=== PATIENT | female | born 1975 | race Hispanic/Latino ===

== ENCOUNTER 2020-07-07 08:49 | Emergency (ER) | payer OTHER ==
--- NOTE | 2020-07-07 10:54 | EDPHYS ---
Physician Documentation [facility] Name: Deneen Banda Age: 44 yrs Sex: Female : 1975 Arrival Date: 07/07/2020 Time: 08:58 Bed 7 Private MD: ED Physician Pedrito Hood HPI: 07/07 09:35 This 44 yrs old Female presents to ER via Ambulatory with complaints of Sore cp Throat, Sinus Congestion. 09:35 Onset: The symptoms/episode began/occurred 3 day(s) ago. cp 09:35 Associated signs and symptoms: Pertinent positives: cough, Sore throat nasal and sinus cp congestion, Pertinent negatives diarrhea, fever, vomiting. Historical: - Allergies: 09:37 No Known Allergies; iw - Home Meds: 09:37 None [Active]; iw - PMHx: 09:37 None; iw - PSHx: 09:37 ; iw - Immunization history:: Adult Immunizations up to date. - Social history:: Smoking status: Patient denies any tobacco usage or history of. ROS: 09:40 Constitutional: Negative for chills, fever, poor PO intake. cp 09:40 Eyes: Negative for injury, pain, redness, and discharge. cp 09:40 ENT: Positive for sinus congestion, sinus pain, sore throat, Negative for drainage from ear(s), ear pain, difficulty swallowing, difficulty handling secretions. 09:40 Cardiovascular: Negative for chest pain. 09:40 Respiratory: Positive for cough, Negative for shortness of breath, wheezing. 09:40 Skin: Negative for rash. 09:40 Neuro: Negative for altered mental status, weakness. 09:40 All other systems are negative. Exam: 10:00 Constitutional: The patient appears in no acute distress, alert, awake, non-toxic, well cp developed, well nourished. 10:00 Head/face: Sinus tenderness, that is mild, is located over the right frontal sinus, cp left frontal sinus, right maxillary sinus and left maxillary sinus. 10:00 Eyes: Periorbital structures: appear normal, Conjunctiva: normal, no exudate, no injection, Lids and lashes: appear normal, bilaterally. 10:00 ENT: External ear(s): are unremarkable, Ear canal(s): are normal, clear, TM's: bulging, is not appreciated, bilaterally, erythema, that is mild, bilaterally, Nose: nasal drainage, that is minimal, Mouth: Lips: moist, Oral mucosa: moist, Posterior pharynx: Airway: no evidence of obstruction, patent, Tonsils: no enlargement, no exudate, erythema, that is mild, exudate, is not appreciated. 10:00 Neck: ROM/movement: Meningeal signs: are not present, Lymph nodes: no appreciated lymphadenopathy. 10:00 Chest/axilla: Inspection: normal. 10:00 Cardiovascular: Rate: normal, Rhythm: regular. 10:00 Respiratory: the patient does not display signs of respiratory distress, Respirations: normal, no use of accessory muscles, no retractions, labored breathing, is not present, Breath sounds: bronchial sounds, that are mild, are heard diffusely, decreased breath sounds, are not appreciated, stridor, is not appreciated, + upper airway congestion. 10:00 Abdomen/GI: Inspection: abdomen appears normal. Vital Signs: 09:26 BP 109 / 71; Pulse 74; Resp 16; Temp 97.2; Pulse Ox 99% on R/A; Weight 81.65 kg; Height iw 4 ft. 11 in. (149.86 cm); 09:26 Body Mass Index 36.36 (81.65 kg, 149.86 cm) iw MDM: 09:11 Patient medically screened. lillian 10:00 Differential diagnosis: group A strep tonsillitis, influenza, mononucleosis, cp pharyngitis, tonsillitis, sinusitis, COVID-19. 10:53 Data reviewed: vital signs, nurses notes, lab test result(s), and as a result, I will cp discharge patient. 10:53 Counseling: I had a detailed discussion with the patient and/or guardian regarding: the cp historical points, exam findings, and any diagnostic results supporting the discharge/admit diagnosis, lab results, to return to the emergency department if symptoms worsen or persist or if there are any questions or concerns that arise at home. ED course: VSS. No signs of respiratory distress and patient appears non-toxic. Will discharge to home for continued monitoring and to quarantine while awaiting results of COVID-19 test. 07/07 09:31 Order name: Influenza Screen (a \T\ B); Complete Time: 10:46 cp 07/07 10:46 Interpretation: Reviewed. cp 07/07 09:31 Order name: Strep; Complete Time: 10:46 cp 07/07 09:31 Order name: COVID-19 07/07 10:46 Order name: Throat Culture EDOH Administered Medications: No medications were administered Disposition: 11:00 Chart complete. cp 07/08 10:47 Co-signature as Attending Physician, Pedrito Hood MD I agree with the assessment and lillian plan of care. Disposition: 07/07/20 10:54 Discharged to Home. Impression: Acute sinusitis. - Condition is Stable. - Discharge Instructions: Sinusitis, Adult, COVID-19. - Prescriptions for Amoxicillin 875 mg Oral Tablet - take 1 tablet by ORAL route every 12 hours for 10 days; 20 tablet. Tessalon Perles 100 mg Oral Capsule - take 2 capsule by ORAL route every 8 hours As needed; 30 capsule. - Medication Reconciliation Form, Thank You Letter, Antibiotic Education, Prescription Opioid Use form. - Follow up: Private Physician; When: 2 - 3 days; Reason: Worsening of condition. - Problem is new. - Symptoms are unchanged. Signatures: Dispatcher [employer] EDOH Pedrito Hood MD MD cha Williams, Irene, RN RN iw Roseanna Evangelista RN RN aa5 Pedrito Nielson, PA PA cp Corrections: (The following items were deleted from the chart) 07/07 11:27 10:54 07/07/2020 10:54 Discharged to Home. Impression: Acute sinusitis. Condition is aa5 Stable. Forms are Medication Reconciliation Form, Thank You Letter, Antibiotic Education, Prescription Opioid Use. Follow up: Private Physician; When: 2 - 3 days; Reason: Worsening of condition. Problem is new. Symptoms are unchanged. cp
--- NOTE | 2020-07-07 10:54 | ER ---
Nurse's Notes [facility] Name: Deneen Banda Age: 44 yrs Sex: Female : 1975 Arrival Date: 07/07/2020 Time: 08:58 Bed 7 Private MD: Diagnosis: Acute sinusitis Presentation: 07/07 09:26 Chief complaint: Patient states: has had cough, congestion, sore throat X 3 days , no iw fever. Coronavirus screen: congestion, cough unrelated to allergies. Ebola Screen: Patient negative for fever greater than or equal to 101.5 degrees Fahrenheit, and additional compatible Ebola Virus Disease symptoms Patient denies exposure to infectious person. Patient denies travel to an Ebola-affected area in the 21 days before illness onset. No symptoms or risks identified at this time. Initial Sepsis Screen: Does the patient meet any 2 criteria? No. Patient's initial sepsis screen is negative. Does the patient have a suspected source of infection? No. Patient's initial sepsis screen is negative. Risk Assessment: Do you want to hurt yourself or someone else? Patient reports no desire to harm self or others. 09:26 Method Of Arrival: Ambulatory iw 09:26 Acuity: PATRICIA 4 iw Historical: - Allergies: 09:37 No Known Allergies; iw - Home Meds: 09:37 None [Active]; iw - PMHx: 09:37 None; iw - PSHx: 09:37 ; iw - Immunization history:: Adult Immunizations up to date. - Social history:: Smoking status: Patient denies any tobacco usage or history of. Screenin:15 Abuse screen: Denies threats or abuse. Nutritional screening: No deficits noted. aa5 Tuberculosis screening: No symptoms or risk factors identified. Fall Risk None identified. Assessment: 09:15 General: Appears comfortable, Behavior is calm, cooperative. Pain: Complains of pain in aa5 throat. Neuro: Level of Consciousness is awake, alert, obeys commands, Oriented to person, place, time, situation. Cardiovascular: Heart tones S1 S2 present Rhythm is regular. Respiratory: Reports cough that is wet Airway is patent Respiratory effort is even, unlabored, Respiratory pattern is regular, symmetrical, Breath sounds are clear bilaterally. GI: Abdomen is round non-distended. : No signs and/or symptoms were reported regarding the genitourinary system. EENT: Throat is reddened Reports nasal congestion watery eyes . Derm: Skin is pink, warm \T\ dry. Musculoskeletal: Range of motion: intact in all extremities. 09:50 Reassessment: Patient is alert, oriented x 3, equal unlabored respirations, skin aa5 warm/dry/pink. Flu, Strep, and COVID-19 swab collected and sent to lab. Pt notified of wait time for results. . 11:20 Reassessment: Patient is alert, oriented x 3, equal unlabored respirations, skin aa5 warm/dry/pink. Vital Signs: 09:26 BP 109 / 71; Pulse 74; Resp 16; Temp 97.2; Pulse Ox 99% on R/A; Weight 81.65 kg; Height iw 4 ft. 11 in. (149.86 cm); 09:26 Body Mass Index 36.36 (81.65 kg, 149.86 cm) ED Course: 08:58 Patient arrived in ED. ag5 09:11 Pedrito Hood MD is Attending Physician. lillian 09:15 Arm band placed on. aa5 09:15 Patient has correct armband on for positive identification. Bed in low position. aa5 09:18 Pedrito Nielson PA is PHCP. hoang 09:25 Roseanna Evangelista, RN is Primary Nurse. aa5 09:37 Triage completed. iw 11:20 No provider procedures requiring assistance completed. Patient did not have IV access aa5 during this emergency room visit. Administered Medications: No medications were administered Outcome: 10:54 Discharge ordered by . cp 11:20 Discharged to home ambulatory. aa5 11:20 Condition: stable 11:20 Discharge instructions given to patient, Instructed on discharge instructions, follow up and referral plans. medication usage, Demonstrated understanding of instructions, follow-up care, medications, Prescriptions given X 2. 11:27 Patient left the ED. aa5 Addendum: 07/09/2020 11:14 Addendum: COVID-19 Result: Negative result given to RN to notify pt. Contacted by: marlys Kim Rn. Left voice mail. Signatures: Judy Mason RN RN Pedrito Hood MD MD cha Williams, Irene, RN RN Roseanna Evangelista RN RN aa5 Pedrito Nielson PA PA cp Gaskin, Ajare ag5 Corrections: (The following items were deleted from the chart) 07/07 10:27 09:37 Arm band placed on iw aa5
[2020-07-07 11:42] VITALS: BP 109/71; TEMP 97.2; O2SAT 99
== END 2020-07-07 11:27 | disposition home or self-care (01) ==
LOC: ER 08:49
DX: J01.90 Acute sinusitis, unspecified (principal); Z20.828 Contact with and (suspected) exposure to other viral communicable diseases
CPT/HCPCS: 87070; 87081; 87804 ×2; 99282; U0002